=== PATIENT | female | born 2000 | race Caucasian/White ===

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

== ENCOUNTER 2020-08-22 10:18 | Emergency (ER) | payer OTHER ==
[2020-08-22] MEDS ORDERED: SODIUM CHLORIDE 0.9% 2,000 ML IV STA (10:32)
[2020-08-22] MEDS ORDERED: ONDANSETRON 4 MG/2 ML VIAL IVP STA (10:33)
[2020-08-22] MEDS ORDERED: ACETAMINOPHEN TAB 500 MG TAB PO STA (10:35)
--- NOTE | 2020-08-22 10:37 | ED ---
General Adult HPI - General Chief complaint: Abdominal Pain Stated complaint: abdominal pain, back pain Time Seen by Provider: 08/22/20 10:26 Source: patient, RN notes reviewed Mode of arrival: ambulatory Limitations: no limitations - History of Present Illness Initial comments: 20-year-old female with a past medical history of cystic fibrosis, kidney stones presents to the emergency room for a chief complaint of back pain. Patient states she has had right flank pain for 3 days now. States it feels kind of like a kidney stone which she has had in the past. States yesterday she started to feel achy like she was having a fever. Patient states this morning she got very nauseous and began vomiting when she came to the ER. Patient states the pain does radiate into the mid right abdomen. Patient denies any diarrhea. Denies cough congestion sore throat. Denies neck stiffness or headache.Patient has no other complaints at this time including shortness of breath, chest pain, headache, or visual changes. - Related Data Home Medications Medication Instructions Recorded Confirmed Aquadeks Chewable Tab 1 tab PO HS 01/25/17 08/22/20 Ergocalciferol [Vitamin D2 50,000 unit PO TH 01/25/17 08/22/20 (DRISDOL)] Loratadine [Claritin] 10 mg PO HS 01/25/17 08/22/20 ARIPiprazole [Abilify] 5 mg PO HS 08/22/20 08/22/20 Albuterol Sulfate [Ventolin HFA] 1 - 2 puff INHALATION RT-Q6H PRN 08/22/20 08/22/20 [place]-3 Fatty Acids/Fish Oil [Fish 1 cap PO DAILY 08/22/20 08/22/20 Oil 1,000 mg Softgel] Sertraline HCl [Zoloft] 200 mg PO DAILY 08/22/20 08/22/20 Previous Rx's Medication Instructions Recorded Cephalexin [Keflex] 500 mg PO Q6HR 14 Days #56 cap 08/22/20 Ondansetron [Zofran ODT] 4 mg PO Q8HR PRN #15 tab 08/22/20 Allergies Allergy/AdvReac Type Severity Reaction Status Date / Time No Known Allergies Allergy Verified 08/22/20 11:14 Review of Systems ROS Statement: Those systems with pertinent positive or pertinent negative responses have been documented in the HPI. ROS Other: All systems not noted in ROS Statement are negative. Past Medical History Additional Past Medical History / Comment(s): cystic fibrosis, kidney stones History of Any Multi-Drug Resistant Organisms: None Reported Past Surgical History: No Surgical Hx Reported Additional Past Surgical History / Comment(s): Mole removed from L side of face. Past Anesthesia/Blood Transfusion Reactions: No Reported Reaction Past Psychological History: Anxiety, Depression Smoking Status: Never smoker Past Alcohol Use History: None Reported Past Drug Use History: None Reported - Past Family History Father Family Medical History: Asthma General Exam Limitations: no limitations General appearance: alert, in no apparent distress Head exam: Present: atraumatic, normocephalic, normal inspection Eye exam: Present: normal appearance, PERRL, EOMI. Absent: scleral icterus, con junctival injection ENT exam: Present: normal exam, normal oropharynx, mucous membranes moist, normal external ear exam Neck exam: Present: normal inspection, full ROM. Absent: tenderness Respiratory exam: Present: normal lung sounds bilaterally. Absent: respiratory distress, wheezes Cardiovascular Exam: Present: regular rate, normal rhythm, normal heart sounds GI/Abdominal exam: Present: soft, tenderness (Mild generalized right-sided abdominal tenderness. No left-sided abdominal tenderness.), normal bowel sounds. Absent: distended, guarding, rebound, rigid Back exam: Present: CVA tenderness (R). Absent: CVA tenderness (L) Course Vital Signs 08/22/20 08/22/20 08/22/20 10:22 11:19 11:30 Temperature 100.6 F H 102.8 F H 101.8 F H Pulse Rate 127 H 106 H Respiratory 16 16 Rate Blood Pressure 89/55 104/60 107/59 O2 Sat by Pulse 99 100 Oximetry Medical Decision Making - Medical Decision Making Patient presents initially febrile with a fever of 102.8 and her Wise a tachycardia of 127. Blood pressure initially lower side which could be normal for her age as well as dehydration as patient has been not drinking as much. Temperature did improve to 98.6 after Motrin and Tylenol. CBC reveals leukocytosis of 12.3. CMP unremarkable. Urinalysis is positive for infection with positive nitrite and 123 white blood cells. Moderate bacteria. Culture pending. Patient given 2 L of fluids and [address] abdomen and pelvis did show bilateral nephrolithiasis. No hydronephrosis or obstructing calculi seen. Fat stranding likely related to pyelonephritis, clinically correlated. Patient does have incidental findings of fecal stasis splenomegaly, that replaced pancreas, fatty infiltration of the liver. Groundglass opacities in the lungs noted as well. Coronavirus is negative. No upper history sym ptoms. Incidental findings likely related to cystic fibrosis. Patient has an appointment with her specialist in 3 days and will follow up for these. Patient reevaluated and is stable. Normal blood pressure. Afebrile. Feeling well at this time. Not requiring pain medication. Recommend outpatient treatment with antibiotics fluids Motrin/Tylenol and Zofran. However if patient has any worsening symptoms she will return to the emergency room. Strict return parameters discussed. Mother at bedside and will be with patient to monitor her. - Lab Data Result diagrams: 08/22/20 11:07 08/22/20 11:07 Lab Results 08/22/20 08/22/20 08/22/20 Range/Units 11:07 11:07 11:07 WBC 12.3 H (4.0-11.0) k/uL RBC 4.33 (3.80-5.40) m/uL Hgb 12.7 (11.4-16.0) gm/dL Hct 37.5 (34.0-46.0) % MCV 86.5 (80.0-100.0) fL MCH 29.2 (25.0-35.0) pg MCHC 33.8 (31.0-37.0) g/dL RDW 13.3 (11.5-15.5) % Plt Count 168 (150-450) k/uL MPV 8.4 Neutrophils % 90 % Lymphocytes % 3 % Monocytes % 5 % Eosinophils % 1 % Basophils % 0 % Neutrophils # 11.1 H (1.3-7.7) k/uL Lymphocytes # 0.4 L (1.0-4.8) k/uL Monocytes # 0.7 (0-1.0) k/uL Eosinophils # 0.2 (0-0.7) k/uL Basophils # 0.0 (0-0.2) k/uL Sodium 134 L (137-145) mmol/L Potassium 3.7 (3.5-5.1) mmol/L Chloride 101 (98-107) mmol/L Carbon Dioxide 24 (22-30) mmol/L Anion Gap 9 mmol/L BUN 12 (7-17) mg/dL Creatinine 1.06 H (0.52-1.04) mg/dL Est GFR (CKD-EPI)AfAm 88 (>60 ml/min/1.73 sqM) Est GFR (CKD-EPI)NonAf 76 (>60 ml/min/1.73 sqM) Glucose 126 H (74-99) mg/dL Plasma Lactic Acid Francisco Javier (0.7-2.0) mmol/L Calcium 9.2 (8.4-10.2) mg/dL Total Bilirubin 1.1 (0.2-1.3) mg/dL AST 21 (14-36) U/L ALT 18 (4-34) U/L Alkaline Phosphatase 107 (38-126) U/L Total Protein 7.1 (6.3-8.2) g/dL Albumin 4.2 (3.5-5.0) g/dL Amylase <30 L (30-110) U/L Lipase <10 L (23-300) U/L HCG, Quant <2.4 mIU/mL Urine Color Yellow Urine Appearance Cloudy H (Clear) Urine pH 5.5 (5.0-8.0) Ur Specific [place] 1.019 (1.001-1.035) Urine Protein 1+ H (Negative) Urine Glucose (UA) Negative (Negative) Urine Ketones Negative (Negative) Urine Blood Small H (Negative) Urine Nitrite Positive H (Negative) Urine Bilirubin Negative (Negative) Urine Urobilinogen <2.0 (<2.0) mg/dL Ur Leukocyte Esterase Large H (Negative) Urine RBC 8 H (0-5) /hpf Urine WBC 123 H (0-5) /hpf Ur Squamous Epith Cells 4 (0-4) /hpf Urine Bacteria Moderate H (None) /hpf Urine Mucus Many H (None) /hpf Coronavirus (PCR) (Not Detectd) 08/22/20 08/22/20 Range/Units 11:07 11:07 WBC (4.0-11.0) k/uL RBC (3.80-5.40) m/uL Hgb (11.4-16.0) gm/dL Hct (34.0-46.0) % MCV (80.0-100.0) fL MCH (25.0-35.0) pg MCHC (31.0-37.0) g/dL RDW (11.5-15.5) % Plt Count (150-450) k/uL MPV Neutrophils % % Lymphocytes % % Monocytes % % Eosinophils % % Basophils % % Neutrophils # (1.3-7.7) k/uL Lymphocytes # (1.0-4.8) k/uL Monocytes # (0-1.0) k/uL Eosinophils # (0-0.7) k/uL Basophils # (0-0.2) k/uL Sodium (137-145) mmol/L Potassium (3.5-5.1) mmol/L Chloride (98-107) mmol/L Carbon Dioxide (22-30) mmol/L Anion Gap mmol/L BUN (7-17) mg/dL Creatinine (0.52-1.04) mg/dL Est GFR (CKD-EPI)AfAm (>60 ml/min/1.73 sqM) Est GFR (CKD-EPI)NonAf (>60 ml/min/1.73 sqM) Glucose (74-99) mg/dL Plasma Lactic Acid Francisco Javier 1.1 (0.7-2.0) mmol/L Calcium (8.4-10.2) mg/dL Total Bilirubin (0.2-1.3) mg/dL AST (14-36) U/L ALT (4-34) U/L Alkaline Phosphatase (38-126) U/L Total Protein (6.3-8.2) g/dL Albumin (3.5-5.0) g/dL Amylase (30-110) U/L Lipase (23-300) U/L HCG, Quant mIU/mL Urine Color Urine Appearance (Clear) Urine pH (5.0-8.0) Ur Specific [place] (1.001-1.035) Urine Protein (Negative) Urine Glucose (UA) (Negative) Urine Ketones (Negative) Urine Blood (Negative) Urine Nitrite (Negative) Urine Bilirubin (Negative) Urine Urobilinogen (<2.0) mg/dL Ur Leukocyte Esterase (Negative) Urine RBC (0-5) /hpf Urine WBC (0-5) /hpf Ur Squamous Epith Cells (0-4) /hpf Urine Bacteria (None) /hpf Urine Mucus (None) /hpf Coronavirus (PCR) Not Detected (Not Detectd) Disposition Clinical Impression: Pyelonephritis, Splenomegaly Disposition: HOME SELF-CARE Condition: Good Instructions (If sedation given, give patient instructions): Kidney Infection (ED) Additional Instructions: Please take antibiotic as directed. Drink plenty of fluids. Take Zofran as needed for nausea. Motrin and Tylenol which you can alternate every 6 hours for pain and fever. If you have any worsening symptoms such as uncontrolled vomiting, inability keep down fluids or antibiotics, or high fevers that won't go down return to the emergency room. Otherwise follow-up with your doctor to discuss all CT findings, review labs, and have a recheck done. Prescriptions: Cephalexin [Keflex] 500 mg PO Q6HR 14 Days #56 cap Ondansetron [Zofran ODT] 4 mg PO Q8HR PRN #15 tab PRN Reason: Nausea Is patient prescribed a controlled substance at d/c from ED?: No Referrals: Samy Lucia [STAFF PHYSICIAN] - 1-2 days Time of Disposition: 13:18
[2020-08-22 11:21] LABS: Basophils % (A) 0 %; Eosinophils # (A) 0.2 k/uL (0-0.7); Eosinophils % (A) 1 %; HCT 37.5 % (34.0-46.0); HGB 12.7 gm/dL (11.4-16.0); Lymphocytes # (A) 0.4 k/uL (1.0-4.8); Lymphocytes % (A) 3 %; MCH 29.2 pg (25.0-35.0); MCHC 33.8 g/dL (31.0-37.0); MCV 86.5 fL (80.0-100.0); Mean Platelet Volume 8.4; Monocytes # (A) 0.7 k/uL (0-1.0); Monocytes % (A) 5 %; Neutrophils # (A) 11.1 k/uL (1.3-7.7); Neutrophils % (A) 90 %; Platelet Count 168 k/uL (150-450); RBC 4.33 m/uL (3.80-5.40); RDW 13.3 % (11.5-15.5); WBC 12.3 k/uL (4.0-11.0)
[2020-08-22 11:34] LABS: ALT 18 U/L (4-34); AST 21 U/L (14-36); African American GFR (CKD) 88 (>60 ml/min/1.73 sqM); Albumin 4.2 g/dL (3.5-5.0); Alkaline Phosphatase 107 U/L (38-126); Amylase <30 U/L (30-110); Anion Gap 9 mmol/L; Blood Urea Nitrogen 12 mg/dL (7-17); Calcium 9.2 mg/dL (8.4-10.2); Carbon Dioxide 24 mmol/L (22-30); Chloride 101 mmol/L (98-107); Glucose 126 mg/dL (74-99); Lipase <10 U/L (23-300); Non-African American GFR(CKD) 76 (>60 ml/min/1.73 sqM); Potassium 3.7 mmol/L (3.5-5.1); Sodium 134 mmol/L (137-145); Total Bilirubin 1.1 mg/dL (0.2-1.3); Total Protein 7.1 g/dL (6.3-8.2)
[2020-08-22 11:48] LABS: Appearance,Urine Cloudy (Clear); Bacteria,Urine Moderate /hpf; Bilirubin,Urine Negative (Negative); Blood,Urine Small (Negative); Color,Urine Yellow; Glucose,Urine (UA) Negative (Negative); Ketones,Urine Negative (Negative); Leukocyte Esterase,Urine Large (Negative); Mucus,Urine Many /hpf; Nitrite,Urine Positive (Negative); PH, Urine 5.5 (5.0-8.0); Protein,Urine 1+ (Negative); RBC,Urine 8 /hpf (0-5); Specific Gravity,Urine 1.019 (1.001-1.035); Squamous Epithelial Cell,Urine 4 /hpf (0-4); Urobilinogen,Urine <2.0 mg/dL (<2.0); WBC,Urine 123 /hpf (0-5)
[2020-08-22 11:50] LABS: HCG,Quantitative Serum <2.4 mIU/mL
[2020-08-22] MEDS ORDERED: cefTRIAXone IN SWFI 1,000 MG/10 ML SYRINGE IVP STA (11:50)
[2020-08-22] MEDS ORDERED: IBUPROFEN 800 MG TAB PO STA (12:19)
--- NOTE | 2020-08-22 12:46 | CT ---
EXAMINATION TYPE: CT abdomen pelvis wo con DATE OF EXAM: 08/22/2020 HISTORY: Right sided pain with nausea. CT DLP: 488.7 mGycm. Automated Exposure Control for Dose Reduction was Utilized. TECHNIQUE: CT scan of the abdomen and pelvis is performed without oral or IV contrast. COMPARISON: NONE FINDINGS: Within the limitations of a non-contrast study, the following observations are made. LUNG BASES: Focal moderate right middle lobe medial bronchiectasis and scarring. Multifocal areas of groundglass opacity in the left lower lobe reference axial image 12, more faint peripheral groundglas s opacity right lower lobe axial image 12 and just above diaphragm. Linear scarring and/or atelectasi s left lung base. LIVER/GB: Visualized liver heterogeneously hypodense consistent with diffuse fatty infiltration. Cont racted gallbladder. PANCREAS: Severe generalized fat replaced atrophy of pancreas. SPLEEN: Splenomegaly at 14.7 cm long axis axial image 42.. ADRENALS: No significant abnormality is seen. KIDNEYS: There are 2-3 nonobstructing left renal calculi up to 5 mm in size. There is punctate 2 to 3 mm calculus lower pole right kidney coronal image 53. No hydronephrosis or obstructing ureter calcul i clearly seen bilaterally. No intraluminal calculus in bladder. Mild right kidney perinephric fat st randing. BOWEL: Suboptimal evaluation of bowel without enteric contrast. Mild to moderate fecal prominence in the right left and transverse colon. Moderate moderately distended terminal ileum up to 2.7 cm with a ir-fluid level in the right lower quadrant. Appendix felt within normal limits in the right pelvis GENITAL ORGANS: Anteverted uterus. LYMPH NODES: No greater than 1cm abdominal or pelvic lymph nodes are appreciated. OSSEOUS STRUCTURES: No significant abnormality is seen. OTHER: No significant additional abnormality is seen. IMPRESSION: 1. Bilateral nephrolithiasis. No hydronephrosis or obstructing ureter calculi clearly seen bilaterall y. Mild right-sided perinephric fat stranding and ill definition versus opposite left side is nonspec ific, could be product of infection or pyelonephritis. Correlate clinically. 2. Overall nonspecific but felt to be nonobstructive bowel gas pattern. Mild to moderate proximal to mid colonic fecal stasis noted. 3. Nonspecific areas of groundglass opacity left greater than right lung bases, in the current enviro nment active covid 19 infection needs to be excluded. 4. Splenomegaly. Severe fat replaced atrophy of the pancreas. Fatty infiltration of liver. Nonemergen t clinical follow-up advised.
[2020-08-22 13:43] VITALS: BP 97/60; PULSE 96; RESP 18
[2020-08-22 13:49] VITALS: TEMP 98.7
== END 2020-08-22 13:42 | disposition home or self-care (01) ==
LOC: EC 10:18
DX: N12 Tubulo-interstitial nephritis, not specified as acute or chronic (principal); K76.0 Fatty (change of) liver, not elsewhere classified; Z20.822 Contact with and (suspected) exposure to COVID-19; N20.0 Calculus of kidney; F41.9 Anxiety disorder, unspecified; F32.9 Major depressive disorder, single episode, unspecified; Z79.899 Other long term (current) drug therapy
CPT/HCPCS: 36415; 80053; 82150; 83605; 83690; 85025; 81001; 84702; 87040; 87491; 87591; 87086; 87635; 74176; 99284; 96365; 96375; 96361 ×2; J2405; J0696

== ENCOUNTER 2020-12-15 12:42 | Emergency (ER) | payer OTHER ==
[2020-12-15 12:53] VITALS: RESP 16; TEMP 98.5
[2020-12-15] MEDS ORDERED: SODIUM CHLORIDE 0.9% 1,000 ML IV ONE (13:17)
[2020-12-15] MEDS ORDERED: KETOROLAC 15 MG/ML 1 ML VIAL IVP STA (13:17)
[2020-12-15] MEDS ORDERED: ONDANSETRON 4 MG/2 ML VIAL IVP STA (13:17)
[2020-12-15 13:46] LABS: Basophils % (A) 0 %; Eosinophils # (A) 0.2 k/uL (0-0.7); Eosinophils % (A) 1 %; HCT 38.7 % (34.0-46.0); HGB 13.6 gm/dL (11.4-16.0); Lymphocytes # (A) 0.8 k/uL (1.0-4.8); Lymphocytes % (A) 6 %; MCH 29.9 pg (25.0-35.0); MCHC 35.1 g/dL (31.0-37.0); MCV 85.3 fL (80.0-100.0); Mean Platelet Volume 8.1; Monocytes # (A) 0.6 k/uL (0-1.0); Monocytes % (A) 5 %; Neutrophils # (A) 10.2 k/uL (1.3-7.7); Neutrophils % (A) 86 %; Platelet Count 202 k/uL (150-450); RBC 4.54 m/uL (3.80-5.40); RDW 12.1 % (11.5-15.5); WBC 11.8 k/uL (4.0-11.0)
[2020-12-15 13:51] LABS: Appearance,Urine Cloudy (Clear); Bacteria,Urine Many /hpf; Bilirubin,Urine Negative (Negative); Blood,Urine Small (Negative); Color,Urine Yellow; Glucose,Urine (UA) Negative (Negative); Ketones,Urine Negative (Negative); Leukocyte Esterase,Urine Large (Negative); Mucus,Urine Few /hpf; Nitrite,Urine Positive (Negative); Protein,Urine 1+ (Negative); RBC,Urine 23 /hpf (0-5); Specific Gravity,Urine 1.017 (1.001-1.035); Squamous Epithelial Cell,Urine 2 /hpf (0-4); Urobilinogen,Urine <2.0 mg/dL (<2.0); WBC,Urine >182 /hpf (0-5)
[2020-12-15] MEDS ORDERED: cefTRIAXone IN SWFI 1,000 MG/10 ML SYRINGE IVP STA (14:02)
--- NOTE | 2020-12-15 14:05 | ED ---
Female Urogenital HPI - General Chief complaint: Urogenital Stated complaint: kidney problems Time Seen by Provider: 12/15/20 13:04 Source: patient, family, RN notes reviewed Mode of arrival: ambulatory Limitations: no limitations - History of Present Illness Initial comments: 20-year-old female presents emergency Department chief complaint of urinary f requency dysuria, nausea and slight point pain. Patient states that symptoms are improving she's had chills at times no recorded temperature. Patient still is tolerating oral intake. Denies any chance . Patient does have underlying cystic fibrosis no increasing cough cold like symptoms no chest pain or shortness of breath. - Related Data Home Medications Medication Instructions Recorded Confirmed Aquadeks Chewable Tab 1 tab PO HS 01/25/17 08/22/20 Ergocalciferol [Vitamin D2 50,000 unit PO TH 01/25/17 08/22/20 (DRISDOL)] Loratadine [Claritin] 10 mg PO HS 01/25/17 08/22/20 ARIPiprazole [Abilify] 5 mg PO HS 08/22/20 08/22/20 Albuterol Sulfate [Ventolin HFA] 1 - 2 puff INHALATION RT-Q6H PRN 08/22/20 08/22/20 [place]-3 Fatty Acids/Fish Oil [Fish 1 cap PO DAILY 08/22/20 08/22/20 Oil 1,000 mg Softgel] Sertraline HCl [Zoloft] 200 mg PO DAILY 08/22/20 08/22/20 Previous Rx's Medication Instructions Recorded Cephalexin [Keflex] 500 mg PO Q6HR 14 Days #56 cap 08/22/20 Ondansetron [Zofran ODT] 4 mg PO Q8HR PRN #15 tab 08/22/20 Cephalexin [Keflex] 500 mg PO Q6HR #40 cap 12/15/20 Allergies Allergy/AdvReac Type Severity Reaction Status Date / Time No Known Allergies Allergy Verified 12/15/20 12:50 Review of Systems ROS Statement: Those systems with pertinent positive or pertinent negative responses have been documented in the HPI. ROS Other: All systems not noted in ROS Statement are negative. Past Medical History Additional Past Medical History / Comment(s): cystic fibrosis, kidney stones History of Any Multi-Drug Resistant Organisms: None Reported Past Surgical History: No Surgical Hx Reported Additional Past Surgical History / Comment(s): Mole removed from L side of face. Past Anesthesia/Blood Transfusion Reactions: No Reported Reaction Past Psychological History: Anxiety, Depression Smoking Status: Never smoker Past Alcohol Use History: None Reported Past Drug Use History: None Reported - Past Family History Father Family Medical History: Asthma General Exam Limitations: no limitations General appearance: alert, in no apparent distress Head exam: Present: atraumatic, normocephalic, normal inspection Eye exam: Present: normal appearance, PERRL, EOMI. Absent: scleral icterus, conjunctival injection, periorbital swelling Respiratory exam: Present: normal lung sounds bilaterally. Absent: respiratory distress, wheezes, rales, rhonchi, stridor Cardiovascular Exam: Present: regular rate, normal rhythm, normal heart sounds. Absent: systolic murmur, diastolic murmur, rubs, gallop, clicks GI/Abdominal exam: Present: soft, normal bowel sounds. Absent: distended, tenderness, guarding, rebound, rigid Back exam: Present: CVA tenderness (L) (Very minimal). Absent: CVA tenderness (R) Neurological exam: Present: alert Skin exam: Present: warm, dry, intact, normal color. Absent: rash Course Vital Signs 12/15/20 12:50 Temperature 98.5 F Pulse Rate 116 H Respiratory 16 Rate Blood Pressure 106/71 O2 Sat by Pulse 99 Oximetry Medical Decision Making - Medical Decision Making 20-year-old presented flank pain, dysuria patient does have evidence of urinary tract infection. Patient is tolerating oral intake. Patient was given Rocephin. Urine cultures were obtained. Patient will be discharged on oral antibiotics.STRICT Return parameters were discussed. - Lab Data Result diagrams: 12/15/20 13:34 Lab Results 12/15/20 12/15/20 12/15/20 Range/Units 13:34 13:34 13:34 WBC 11.8 H (4.0-11.0) k/uL RBC 4.54 (3.80-5.40) m/uL Hgb 13.6 (11.4-16.0) gm/dL Hct 38.7 (34.0-46.0) % MCV 85.3 (80.0-100.0) fL MCH 29.9 (25.0-35.0) pg MCHC 35.1 (31.0-37.0) g/dL RDW 12.1 (11.5-15.5) % Plt Count 202 (150-450) k/uL MPV 8.1 Neutrophils % 86 % Lymphocytes % 6 % Monocytes % 5 % Eosinophils % 1 % Basophils % 0 % Neutrophils # 10.2 H (1.3-7.7) k/uL Lymphocytes # 0.8 L (1.0-4.8) k/uL Monocytes # 0.6 (0-1.0) k/uL Eosinophils # 0.2 (0-0.7) k/uL Basophils # 0.0 (0-0.2) k/uL Urine Color Yellow Urine Appearance Cloudy H (Clear) Urine pH 6.0 (5.0-8.0) Ur Specific [place] 1.017 (1.001-1.035) Urine Protein 1+ H (Negative) Urine Glucose (UA) Negative (Negative) Urine Ketones Negative (Negative) Urine Blood Small H (Negative) Urine Nitrite Positive H (Negative) Urine Bilirubin Negative (Negative) Urine Urobilinogen <2.0 (<2.0) mg/dL Ur Leukocyte Esterase Large H (Negative) Urine RBC 23 H (0-5) /hpf Urine WBC >182 H (0-5) /hpf Ur Squamous Epith Cells 2 (0-4) /hpf Urine Bacteria Many H (None) /hpf Urine Mucus Few H (None) /hpf Urine HCG, Qual Not Detected (Not Detectd) Disposition Clinical Impression: Urinary tract infection Disposition: HOME SELF-CARE Condition: Stable Instructions (If sedation given, give patient instructions): Urinary Tract Infection in Women (ED) Additional Instructions: Please return to the Emergency Department if symptoms worsen or any other concerns. Prescriptions: Cephalexin [Keflex] 500 mg PO Q6HR #40 cap Is patient prescribed a controlled substance at d/c from ED?: No Referrals: None,Stated [Primary Care Provider] - 1-2 days Time of Disposition: 14:04
[2020-12-15 14:06] LABS: ALT 13 U/L (4-34); AST 19 U/L (14-36); African American GFR (CKD) >90 (>60 ml/min/1.73 sqM); Albumin 4.2 g/dL (3.5-5.0); Alkaline Phosphatase 111 U/L (38-126); Anion Gap 9 mmol/L; Blood Urea Nitrogen 7 mg/dL (7-17); Calcium 8.9 mg/dL (8.4-10.2); Carbon Dioxide 24 mmol/L (22-30); Chloride 104 mmol/L (98-107); Glucose 80 mg/dL (74-99); Non-African American GFR(CKD) 80 (>60 ml/min/1.73 sqM); Potassium 3.7 mmol/L (3.5-5.1); Sodium 137 mmol/L (137-145); Total Bilirubin 0.5 mg/dL (0.2-1.3); Total Protein 7.5 g/dL (6.3-8.2)
[2020-12-15 14:30] VITALS: BP 124/65; PULSE 100
== END 2020-12-15 14:30 | disposition home or self-care (01) ==
LOC: EC 12:42
DX: N39.0 Urinary tract infection, site not specified (principal); F41.9 Anxiety disorder, unspecified; F32.9 Major depressive disorder, single episode, unspecified
CPT/HCPCS: 36415; 80053; 85025; 81001; 81025; 87086; 99283; 96374; 96375 ×2; J2405; J0696; J1885